=== PATIENT | male | born 1985 | race Caucasian/White ===

== ENCOUNTER 2020-03-21 15:30 | Emergency (ER) | payer BC ==
[~2020-03-21] VITALS: Ht 185.4 cm; Wt 83.9 kg
[2020-03-21] MEDS ORDERED: XARELTO20 MG (15:48)
== END 2020-03-21 18:52 | disposition home or self-care (01) ==
LOC: ER 15:30
DX: S01.121A Laceration with foreign body of right eyelid and periocular area, initial encounter (principal); W26.8XXA Contact with other sharp object(s), not elsewhere classified, initial encounter; Y93.89 Activity, other specified; Y92.832 Beach as the place of occurrence of the external cause; Y99.8 Other external cause status

== ENCOUNTER 2020-03-27 12:20 | Emergency (ER) | payer BC ==
[~2020-03-27] VITALS: Ht 193 cm; Wt 83.9 kg
[~2020-03-27 12:20] MED LIST: XARELTO20 MG
[2020-03-27] MEDS ORDERED: MUPIROCIN15 GM TOP (14:21)
== END 2020-03-27 14:24 | disposition home or self-care (01) ==
LOC: ER 12:20
DX: Z48.02 Encounter for removal of sutures (principal)